=== PATIENT | male | born 1980 | race Caucasian/White ===

== ENCOUNTER 2016-10-26 03:14 | Inpatient (IN) | payer OTHER ==
--- NOTE | ~2016-10-26 | PN ---
Unit #: [id number] #: [id number] Patient: BLADE CARLISLE [id number] [facility] [address] [place] [address] [id number] MR#: [id number] NAME: BLADE CARLISLE ROOM: [facility] Age: 36 Sex: M Admission Date: 10/26/2016 : 1980 Attending Physician: Anuj Jenkins M.D. Admitting Physician: Anuj Jenkins M.D. Primary Care Physician: Primary Care Physician Samantha ALAS NOTES DATE 10/28/2016 DISCUSSION Blade Carlisle is a 36-year-old male, seen on 10/28/2016. The patient interviewed, chart reviewed, and obtained information from the nursing staff. The patient was withdrawn, isolative, and guarded, but able to maintain safe behavior, denied any thoughts of harming self or others. The patient's vital signs are stable. REVIEW OF SYSTEMS Complete review of systems unremarkable. MENTAL STATUS EXAMINATION General appearance: Patient casually dressed. Attention span and concentration, fair. Oriented to place and person. Mood and affect, sad and dysphoric, withdrawn, isolative and guarded. Association, the patient denied any thoughts of harming self or others or any psychotic symptoms. Recent and remote memory, poor. Insight and judgment, poor. DIAGNOSES 1. Mood disorder, NOS. 2. Alcohol use disorder, severe. ASSESSMENT/PLAN Advised to continue with the current medication and therapeutic protocol and will monitor response to medication, and make further adjustment of medication. Dictated by... Kathy Harris/jaime TD: 10/29/2016 08:11 JOB #: [id number] Unit #: [id number] #: [id number] Patient: BLADE CARLISLE BERENICERAMYA BISHOP NOTES X Anuj Jenkins MD PROGRESS NOTE
--- NOTE | ~2016-10-26 | DS ---
Unit #: [id number] #: [id number] Patient: YONATHAN JOHNSON [id number] [facility] [address] [place] [address] [id number] MR#: [id number] NAME: YONATHAN JOHNSON ROOM: [facility] Age: 36 Sex: M Admission Date: 10/26/2016 : 1980 Discharge Date: 10/30/2016 Attending Physician: Anuj Jenkins M.D. Primary Care Physician: Primary Care Physician No DISCHARGE SUMMARY REASON FOR ADMISSION Alcohol abuse, alcohol withdrawal. DIAGNOSTIC STUDIES LABORATORY RESULTS: Remarkable for a potassium of 3.3, chloride 98, AST 104, and ALT 74. Urine drug screen positive for benzodiazepine and marijuana. HOSPITAL COURSE The patient was admitted to inpatient unit on 10/26/2016 and discharged on 10/30/2016. The patient was treated on the inpatient unit with group therapy, individual therapy, medication management, detox protocol, and detox monitoring. The patient responded well. The patient's potassium was low, which was replaced. Subsequently, the patient showed improvement and discharged with a plan to follow up in outpatient program. DISCHARGE MEDICATIONS None. DISCHARGE DIAGNOSES Psychiatric: 1. Mood disorder, not otherwise specified, F32.9. 2. Alcohol use disorder, severe, F10.20. Secondary diagnosis: Deferred. Medical diagnosis: Alcohol withdrawal. Stressors: Psychosocial stressors. DISCHARGE INSTRUCTIONS The patient is to follow up in outpatient clinic as per protective services social worker. CONDITION ON DISCHARGE The patient was pleasant and cooperative. Denied any psychotic symptom or any suicidal ideation. PROGNOSIS Guarded. DIET AND ACTIVITY As tolerated. Unit #: [id number] #: [id number] Patient: YONATHAN JOHNSON Dictated by... Kathy Harris/juan TD: 10/30/2016 21:04 JOB #: [id number] DISCHARGE SUMMARY X Anuj Jenkins MD X DISCHARGE SUMMARY
--- NOTE | ~2016-10-26 | PA ---
Unit #: [id number] #: [id number] Patient: BLADE CARLISLE [id number] [facility] [address] [place] [address] [id number] MR#: [id number] NAME: BLADE CARLISLE ROOM: 82 Age: 36 Sex: M Admission Date: 10/26/2016 : 1980 Date of Assessment: Attending Physician: Anuj Jenkins M.D. Admitting Physician: Anuj Jenkins M.D. Primary Care Physician: Primary Care Physician No PSYCHIATRIC ASSESSMENT INFORMANTS The patient reliability, fair informant and chart reliability, good. CHIEF COMPLAINT Alcohol abuse. HISTORY OF PRESENT ILLNESS Mr. Blade Carlisle is a 36-year-old male, seen on . The patient reported withdrawing from alcohol, needing help. The patient has a history of previous treatment, details unknown at this time. The patient reported tried to drink himself to . The patient reported unable to quantify how much. The patient reported that some sips. The patient reported that he has been having one problem and does not elaborate. The patient reported feeling sad, depressed, hopeless, worthless, suicidal ideation, and suicide attempt by drinking. The patient denied any homicidal ideation or auditory hallucination. The patient denied any legal charges. The patient reported having withdrawal symptoms, sad, depressed, and tearful. The patient is still having suicidal ideation. Reported alcohol use, age of onset 13, drinking whiskey, last use on 10/25/2016. The patient has marijuana use, age of onset 14. The patient denied any history of blackout, HIV, hepatitis, or withdrawal symptom, but feeling very shaky, anxious, and nervous. Needing inpatient admission. PAST PSYCHIATRIC HISTORY Remarkable for history of previous treatment, but details unknown at this time. FAMILY HISTORY/SOCIAL HISTORY The patient having problem with relationship. Family psychiatric illness unknown. No known history of any abuse or legal charges. MEDICAL HISTORY Remarkable for the patient having problem with dizziness and balance, but no chronic medical condition. Musculoskeletal; muscle strength and tone, no atrophy or abnormal movement. Gait abnormal. ALLERGIES No known drug allergies. MEDICATION HISTORY None. SUBSTANCE ABUSE HISTORY Unit #: [id number] #: [id number] Patient: BLADE CARLISLE Please see above. REVIEW OF SYSTEMS HEENT: Eyes, clear. Ears, nose, mouth, and throat; clear. CARDIOVASCULAR: Unremarkable. RESPIRATORY: Unremarkable. GI: Unremarkable. : Unremarkable. SKIN: Unremarkable. LYMPH NODE: Unremarkable. NEUROLOGIC: Unremarkable. ENDOCRINE: Unremarkable. HEMATOLOGIC: Unremarkable. ALLERGIC/IMMUNOLOGIC: Unremarkable. MUSCULOSKELETAL: Muscle strength and tone, no atrophy or abnormal movement. Gait abnormal. MENTAL STATUS EXAMINATION CONSTITUTIONAL: Measurement of vital signs; temperature is 97.9, heart rate 97, respiratory rate 18, blood pressure 141/92, height 5 feet 8 inches, and weight 180 pounds. GENERAL APPEARANCE: The patient dressed casually. The patient did not show any facial deformity. MUSCULOSKELETAL: Please see above. PSYCHIATRIC EXAMINATION Description of speech; regular rate, normal volume, normal articulation. Description of thought process, circumstantial. Description of association, guarded. Description of abnormal psychotic thinking; suicidal ideation, sad, and depressed. Denied any psychotic symptom or any homicidal ideation. History of alcohol abuse. Description of the patient's judgment; concerning everyday activity, poor. Social situation, poor. Concerning psychiatric condition, poor. Complete mental status examination; oriented in time, place, and person. Recent and remote memory, fair. Attention span and concentration, fair. Language, able to name object and repeat phrases. Fund of knowledge, aware of current event and passive vocabulary intact. Mood and affect, sad and dysphoric. Insight and judgment, fair to poor. ASSETS AND LIABILITIES Assets, the patient is articulate and able to take care of his ADL. Liability, history of substance abuse and depression. ADMITTING DIAGNOSES Psychiatric: Mood disorder, not otherwise specified, F32.9; rule out major depressive disorder, recurrent, F33.2; and alcohol use disorder, severe, F10.20. Secondary diagnosis: Deferred. Medical diagnoses: Alcohol withdrawal symptom and rule out electrolyte imbalance. Stressors: Psychosocial stressors. PSYCHIATRIC PLAN AND TREATMENT GOAL AND DISCHARGE PLAN 1. Advised to admit the patient on the inpatient unit. Provide safe, Unit #: [id number] #: [id number] Patient: BLADE CARLISLE supportive, and structured environment. 2. Ordered labs; CBC, CMP, UA, and UDS. 3. Precaution for self-harm, detox protocol, and detox monitoring. 4. The patient was started on CIWA protocol. The patient to be monitored closely. Also, monitor the patient's lab. If needed, we will get a medical consult. 5. The patient to attend group therapy, individual therapy, and medication management. If needed, consider further adjustment of medication. TREATMENT GOAL To attain euthymic mood, gain insight into his problem, and learn coping skills. DISCHARGE PLAN Plan to stabilize the patient and consider followup in outpatient program. ESTIMATED LENGTH OF STAY 5 to 7 days. Dictated by... Kathy Harirs/juan TD: 10/27/2016 18:47 JOB #: [id number] PSYCHIATRIC ASSESSMENT X Anuj Jenkins MD PSYCHIATRIC ASSESSMENT
--- NOTE | ~2016-10-26 | HP ---
Unit #: [id number] #: [id number] Patient: BLADE JOHNSON [id number] [place] [address] [id number] MR#: [id number] NAME: BLADE JOHNSON ROOM: 82 Age: 36 Sex: M Admission Date: 10/26/2016 : 1980 Attending Physician: Anuj Jenkins M.D. Admitting Physician: Anuj Jenkins M.D. Primary Care Physician: Primary Care Physician No HISTORY AND PHYSICAL HISTORY OF PRESENT ILLNESS Blade is a 36 year old admitted to [facility] because of his abuse of alcohol. PAST MEDICAL HISTORY Long history of alcohol abuse. PAST SURGICAL HISTORY Nothing reported. ALLERGIES No known drug allergies. SOCIAL HISTORY He does not smoke. Drinks up to a fifth of whiskey frequently and admits to using marijuana on occasion. FAMILY HISTORY Medically noncontributory. REVIEW OF SYSTEMS CONSTITUTIONAL: No fever or chills. HEENT: Denies any sore throat, ear pain or runny nose. CARDIOVASCULAR: Denies chest pain, irregular heart rhythm or palpitations. CHEST: Denies shortness of breath or cough. No hemoptysis. GASTROINTESTINAL: Denies nausea, vomiting, diarrhea or chronic constipation. ENDOCRINE: Denies history of increased thirst or urination. No recent significant weight loss or gain. GENITOURINARY: Denies dysuria, frequency, or hematuria. SKIN: Denies any rashes. HEMATOLOGIC: Denies history of increased bleeding or bruising. MUSCULOSKELETAL: Denies any hot, swollen joints. No generalized muscle pain. NEUROLOGIC: Denies problems with vision or speech. No frequent, severe headaches. No numbness, tingling or weakness in any extremities. Denies loss of bladder or bowel control. CURRENT MEDICATIONS Detox protocol. PHYSICAL EXAMINATION GENERAL: Alert, well-nourished, in no apparent distress. Unit #: [id number] #: [id number] Patient: BLADE JOHNSON VITAL SIGNS: Blood pressure 150/74, heart rate 80, respirations 16, temperature 98.6. WEIGHT: 180. HEIGHT: 5 feet 8 inches. SKIN: Warm and dry without rash or lesion. HEENT: Normocephalic. TMs not viewed. Oral and nasal passages clear. Conjunctivae clear. PERRLA. EOMs intact. NECK: Supple without lymphadenopathy or thyromegaly. HEART: Regular rate and rhythm without murmur. LUNGS: Clear. ABDOMEN: Soft, nontender. : Not done. EXTREMITIES: No evidence of cyanosis, clubbing or edema. Moves all without focal deficit. NEUROLOGICAL: Grossly within normal limits. Cranial Nerves: II: Visual terry are intact. III, IV AND : Extraocular movements are intact. Pupils are equal, round and reactive to light. V: Facial sensation is grossly normal. VII: Facial movements and expression are normal. VIII: Auditory acuity grossly intact. IX, X: Uvula is midline. Phonation is normal. XI: Patient shrugs shoulders and turns head normally. XII: Tongue protrudes in the midline. Sensory and Motor Function: Sensory and motor sensation is grossly normal. Motor: moves all extremities well. Coordination: Gait is normal. Deep Tendon Reflexes: Intact. IMPRESSION Psychiatric admission. RECOMMENDATIONS PSYCHIATRIC: Per psychiatrist. MEDICAL: See no contraindications to participate in facility's activities. MEDICAL PROGNOSIS Good. MEDICAL CONDITION Stable. Dictated by... Gregoria Yuen P.A.-C. for Kathy James/ronni TD: 10/26/2016 19:10 JOB #: [id number] Unit #: [id number] #: [id number] Patient: BLADE JOHNSON HISTORY AND PHYSICAL X Gregoria Yuen HISTORY AND PHYSICAL
--- NOTE | ~2016-10-26 | PN ---
Unit #: [id number] #: [id number] Patient: BLADE CARLISLE [id number] [facility] [address] [place] [address] [id number] MR#: [id number] NAME: BLADE CARLISLE ROOM: [facility] Age: 36 Sex: M Admission Date: 10/26/2016 : 1980 Attending Physician: Anuj Jenkins M.D. Admitting Physician: Anuj Jenkins M.D. Primary Care Physician: Primary Care Physician Samantha ALAS NOTES DATE 10/29/2016 DISCUSSION Blade Carlisle is a 36-year-old male seen on 10/29/2016. Patient interviewed. Chart reviewed. Obtained information from nursing staff. Patient reported having suicidal thoughts, unable to contract for safety. Subsequently, discharge was cancelled. Patient was withdrawn, isolative, guarded. Complete review of system unremarkable. MENTAL STATUS EXAMINATION General appearance, patient dressed casually. Attention span, concentration fair. Mood and affect sad, dysphoric. Speech monotone. Thought process concrete. Patient denied any thoughts of harming others but having suicidal thoughts, guarded, sad, depressed. Recent and remote memory poor. Insight and judgement poor. DIAGNOSES 1. Mood disorder NOS. 2. Alcohol use disorder, severe. ASSESSMENT/PLAN Advised to continue with the inpatient programming. Advised to add Celexa 20 mg daily. If needed, consider further adjustment of medication. Continue with the inpatient programming. Dictated by... Kathy Harris/ronni TD: 10/30/2016 20:12 JOB #: [id number] Unit #: [id number] #: [id number] Patient: BLADE CARLISLE BERENICERAMYA PROGRESS NOTES X Anuj Jenkins MD PROGRESS NOTE
--- NOTE | ~2016-10-26 | PN ---
Unit #: [id number] #: [id number] Patient: BLADE CARLISLE [id number] [facility] [address] [place] [address] [id number] MR#: [id number] NAME: BLADE CARLISLE ROOM: [facility] Age: 36 Sex: M Admission Date: 10/26/2016 : 1980 Attending Physician: Anuj Jenkins M.D. Admitting Physician: Anuj Jenkins M.D. Primary Care Physician: Primary Care Physician Samantha ALAS NOTES DATE OF SERVICE: 10/27/2016 DISCUSSION Mr. Blade Carlisle is a 36-year-old male, seen on 10/27/2016. The patient is still withdrawn, isolative, flat affect. Reported feeling weak, having withdrawal symptom. The patient's vital signs; temperature 98.4, pulse 97, and blood pressure 141/92. The patient is still reported having racing heart. The patient was withdrawn, isolative, guarded. The patient's potassium was low yesterday, subsequently ordered CMP today. Complete review of systems unremarkable. MENTAL STATUS EXAMINATION General appearance; the patient dressed casually, in hospital attire. Attention span and concentration, poor. Oriented in place and person. Mood and affect; sad, depressed. Speech, monotone. Thought process, concrete. The patient denied any thoughts of harming self or others, but guarded. Recent and remote memory, poor. Insight and judgment, poor. DIAGNOSES 1. Alcohol use disorder, severe. 2. Mood disorder, not otherwise specified. ASSESSMENT AND PLAN Advised to continue with current medication and therapeutic protocol. We will monitor response to medication and make further adjustment of medication. Dictated by... Kathy Harris/juan TD: 10/28/2016 21:39 JOB #: [id number] Unit #: [id number] #: [id number] Patient: BLADE CARLISLE BISHOP NOTES X Anuj Jenkins MD PROGRESS NOTE
[2016-10-26 09:35] LABS: BASOPHIL% 0.4 % (0-2.5); EOSINOPHIL# 0.1 X10e3 (0-0.7); EOSINOPHIL% 0.8 % (0.0-7.0); HEMATOCRIT 39.4 % (38.0-50.0); HEMOGLOBIN 13.8 gm/dL (13.0-16.0); LYMPHOCYTE# 1.1 X10e3 (1.0-3.5); LYMPHOCYTE% 9.7 % (17.0-45.0); MEAN CELL VOLUME 81.5 FL (83-96); MEAN CORPUSCULAR HEMOGLOBIN 28.6 PG (28-34); MEAN PLATELET VOLUME 8.2 FL (6.5-11.5); MONOCYTE% 8.9 % (3.0-12.0); NEUTROPHIL# 8.7 X10e3 (1.5-7.1); NEUTROPHIL% 80.2 % (40-75); RED BLOOD COUNT 4.83 X10e (3.90-5.60); RED CELL DISTRIBUTION WIDTH 13.6 % (11.0-15.5); WHITE BLOOD COUNT 10.9 X10e3 (4.0-10.5)
[2016-10-26 09:59] LABS: THYROID STIMULATING HORMONE 3.51 uIU/ml (0.34-5.60)
[2016-10-26 10:04] LABS: ALBUMIN SERUM 3.9 g/dL (3.5-5.0); ALKALINE PHOSPHATASE 60 U/L (32-92); ALT (SGPT) 83 U/L (10-40); AST (SGOT) 169 U/L (10-42); BLOOD UREA NITROGEN 14 mg/dL (9-23); BUN/CREATININE RATIO 15.55; CALCIUM SERUM 8.4 mg/dL (8.4-10.2); CARBON DIOXIDE 29 mmol/L (22-31); CHLORIDE 83 mmol/L (100-111); CREATININE SERUM 0.9 mg/dL (0.6-1.4); GLOM FILT RATE Estimated ABOVE60 mL/min (>60); GLUCOSE FASTING 116 mg/dL (70-110); PROTEIN TOTAL SERUM 6.3 g/dL (6.0-8.3); SODIUM 129 mmol/L (135-145)
[2016-10-26 10:06] LABS: FREE THYROXIN (T4) 1.05 ng/dL (0.58-1.64)
[2016-10-26 10:09] LABS: DIFF IND YES; PLATELET COUNT 92 X10e3 (140-420)
[2016-10-26 10:13] LABS: PLATELET ESTIMATE DECREASED (NORMAL)
[2016-10-26 10:14] LABS: RBC NORMAL YES
[2016-10-26 10:34] LABS: POTASSIUM 2.7 mmol/L (3.5-5.1)
[2016-10-28 11:31] LABS: URINE APPEARANCE CLEAR; URINE BILIRUBIN NEG (NEG); URINE BLOOD NEG (NEG); URINE COLOR DK YELLOW; URINE GLUCOSE NEG (NEG); URINE KETONE NEG (NEG); URINE LEUKOCYTE ESTERASE NEG (NEG); URINE NITRATE NEG (NEG); URINE PROTEIN NEG (NEG); URINE SPECIFIC GRAVITY 1.011 (1.003-1.035)
[2016-10-28 11:51] LABS: AMPHETAMINE NEG (NEG); BARBITURATES NEG (NEG); BENZODIAZEPINES POS (NEG); COCAINE NEG (NEG); MARIJUANA POS (NEG); OPIATES NEG (NEG); TRICYCLIC ANTIDEPRESSANTS NEG (NEG); U METHADONE NEG (NEG)
[2016-10-28 11:55] LABS: ALBUMIN SERUM 3.5 g/dL (3.5-5.0); ALKALINE PHOSPHATASE 75 U/L (32-92); ALT (SGPT) 74 U/L (10-40); AST (SGOT) 104 U/L (10-42); BILIRUBIN,TOTAL 0.4 mg/dL (0.2-2.0); BLOOD UREA NITROGEN 12 mg/dL (9-23); BUN/CREATININE RATIO 17.14; CALCIUM SERUM 8.6 mg/dL (8.4-10.2); CARBON DIOXIDE 28 mmol/L (22-31); CHLORIDE 98 mmol/L (100-111); CREATININE SERUM 0.7 mg/dL (0.6-1.4); GLOM FILT RATE Estimated ABOVE60 mL/min (>60); GLUCOSE FASTING 95 mg/dL (70-110); POTASSIUM 3.3 mmol/L (3.5-5.1); PROTEIN TOTAL SERUM 5.7 g/dL (6.0-8.3); SODIUM 137 mmol/L (135-145)
== END 2016-10-30 12:17 | disposition home or self-care (01) | DRG 885 ==
LOC: P1E 03:14
PROVIDERS: Psychiatry & Neurology Psychiatry
PROC: HZ2ZZZZ Detoxification Services for Substance Abuse Treatment (ICD-10-PCS; principal; 2016-10-26)
DX: F39 Unspecified mood [affective] disorder (principal); F33.2 Major depressive disorder, recurrent severe without psychotic features; F10.239 Alcohol dependence with withdrawal, unspecified; F10.20 Alcohol dependence, uncomplicated
CPT/HCPCS: 80053; 80307; 81003; 84439; 84443; 85025; 86592